=== PATIENT | female | born 1980 | race Caucasian/White ===

== ENCOUNTER 2019-10-14 13:53 | Emergency (ER) | payer MEDICAID, SELFPAY ==
[2019-10-14 13:54] VITALS: BP 205/135; PULSE 92; RESP 16; TEMP 36.9; O2SAT 99; BMI 22.3
--- NOTE | 2019-10-14 14:27 | RAD_ITS ---
STUDY: X-RAY - RIGHT SHOULDER REASON FOR EXAM: Female, 38 years old. Right shoulder/collar bone pain after injury TECHNIQUE: 2 view(s) of the shoulder. COMPARISON: None. FINDINGS: Normal glenohumeral articulation. Normal acromioclavicular joint. Normal acromion. Normal humeral head and visualized proximal humerus. The soft tissue structures are unremarkable. Normal visualized pulmonary apex. RAD/Shoulder min 2 Views IMPRESSION: Normal x-ray examination of the shoulder. Electronically Signed: Ryan Herbert, at 15:04 EDT , Service support ,
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
--- NOTE | 2019-10-14 14:30 | RAD_ITS ---
STUDY: X-RAY CHEST REASON FOR EXAM: Female, 38 years old. Chest pain. TECHNIQUE: Single AP portable view of the chest. COMPARISON: None. FINDINGS: The lungs are clear and expanded. There is no demonstrated pleural abnormality. Normal size heart. Normal mediastinum and maxx. Normal visualized pulmonary arteries. Normal visualized aortic arch and descending thoracic aorta. Normal visualized thoracic spine. Normal visualized ribs, clavicles, and shoulders. There is no demonstrated abnormality of the visualized soft tissue structures of the upper abdomen. RAD/Chest 1 View (Portable) IMPRESSION: Normal x-ray examination of the chest. Electronically Signed: Ryan Herbert, at 15:04 EDT , Service support ,
[2019-10-14] MEDS: Ibuprofen 600 MG Tablet PO (14:46)
[2019-10-14 14:48] VITALS: BP 210/118
--- NOTE | 2019-10-14 16:04 | ED.DEP ---
ED Disposition - Plan for ED Patient: Disposition: Home or Assisted Living Instructions: ED CHEST CONTUSION Referrals: Eddy Bauer DO [Primary Care Provider] - 1 Week if not improving Additional Instructions: Ice to right chest wall. Tylenol and Motrin for pain and swelling. Follow-up if not improving this should progressively get better.
[2019-10-14 16:21] VITALS: BP 190/89; RESP 18; O2SAT 99
== END 2019-10-14 16:22 | disposition home or self-care (01) ==
PROVIDERS: Emergency Provider Emergency Medicine; PCP Family Medicine
DX: S20.211A Contusion of right front wall of thorax, initial encounter (principal); I10 Essential (primary) hypertension; Z79.899 Other long term (current) drug therapy; W50.0XXA Accidental hit or strike by another person, initial encounter; Y93.89 Activity, other specified; Y92.89 Other specified places as the place of occurrence of the external cause; Y99.8 Other external cause status
CPT/HCPCS: 71045; 73030; 99283

== ENCOUNTER 2020-08-30 05:57 | Emergency (ER) | payer MEDICAID, SELFPAY ==
[2020-08-30 05:58] VITALS: BP 179/96; PULSE 79; RESP 18; TEMP 36.2; O2SAT 99; BMI 28.8
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
== END 2020-08-30 07:59 | disposition left against medical advice (07) ==
PROVIDERS: Emergency Provider Emergency Medicine; PCP Family Medicine
DX: F41.9 Anxiety disorder, unspecified (principal); F32.9 Major depressive disorder, single episode, unspecified; I10 Essential (primary) hypertension; Z79.899 Other long term (current) drug therapy; Z87.891 Personal history of nicotine dependence
CPT/HCPCS: 99282

== ENCOUNTER 2021-08-15 21:19 | Emergency (ER) | payer MEDICAID, SELFPAY ==
[2021-08-15 21:20] VITALS: BP 187/101; PULSE 75; RESP 17; TEMP 36.6; O2SAT 97; BMI 34.9
--- NOTE | 2021-08-15 22:19 | EDS_ITS ---
HPI <Dr. Flavia Springer MD - Last Filed: 08/15/21 22:19> History of Present Illness Chief Complaint: Rash <MIRIAN LAZO - Last Filed: 08/15/21 22:37> History of Present Illness Informant: patient Onset/Context/Timing Onset: Weeks (4) Timing: Continuous Narrative Narrative: Patient presents secondary to erythemic rash that began 1 month ago. Patient states rash started in her groin area, accompanied by yellow/green discharge. Patient states that rash has since ascended to her upper body. Patient denies drainage from rash or pruritus. [facility] <Dr. Flavia Springer MD - Last Filed: 08/15/21 22:19> [facility] Medical History Anxiety Depression Hypertension Home Medications amlodipine 5 mg PO DAILY 10/14/19 [History Last Taken Unknown] losartan 100 mg PO DAILY 10/14/19 [History Last Taken Unknown] metoprolol succinate 100 mg PO DAILY 10/14/19 [History Last Taken Unknown] sertraline 200 mg PO DAILY 10/14/19 [History Last Taken Unknown] Allergy/AdvReac Type Severity Reaction Status Date / Time No Known Allergies Allergy Verified 08/15/21 21:24 Social History (System 12/21/18 @ 15:33 by Kati Cavazos) Smoking Status: Former smoker EXAM <Dr. Flaiva Springer MD - Last Filed: 08/15/21 22:19> Physical Exam Const Vital Signs: 08/15/21 21:20 Temperature 97.9 F Temperature Source Temporal Pulse Rate 75 Respiratory Rate 17 Blood Pressure 187/101 H Blood Pressure Mean 129 Pulse Ox 97 Oxygen Delivery Method Room Air <MIRIAN LAZO - Last Filed: 08/15/21 22:37> Physical Exam Const Vital Signs: 08/15/21 21:20 Temperature 97.9 F Temperature Source Temporal Pulse Rate 75 Respiratory Rate 17 Blood Pressure 187/101 H Blood Pressure Mean 129 Pulse Ox 97 Oxygen Delivery Method Room Air Discharge Plan Triage Chief Complaint: Rash ED Provider: Flavia Springer Dx/Rx/DC Orders Prescriptions: No Action metoprolol succinate 50 MG tablet extended release 24 hr 100 mg PO DAILY RF: 0 sertraline 100 MG tablet 200 mg PO DAILY RF: 0 amlodipine 5 MG tablet 5 mg PO DAILY RF: 0 losartan 100 MG tablet 100 mg PO DAILY RF: 0 Primary Care Provider: Eddy Bauer
[2021-08-15 22:27] LABS: Mucous, Urine 0 SEEN /hpf (<or=2+)
[2021-08-15 22:28] LABS: Color, Urine Yellow (Yellow); Glucose, Dipstick 50 mg/dl (Normal); Ketone-Dipstick Negative (Negative); Leukocyte Esterase-Dipstick 500 /ul (Negative); Nitrite-Dipstick Negative (Negative); Occult Blood-Urine 25 /ul (Negative); Protein-Dipstick 15 mg/dl (Negative); Specific Gravity, Urine 1.015 (1.002-1.030); Urine Bilirubin Dipstick Negative (Negative); Urine Clarity Sl. Cloudy (Clear); Urine Urobilinogen Normal (Normal); Urine pH 6.5 (5.0 - 8.0)
[2021-08-15 22:38] LABS: White Blood Cells 50-100 SEEN /hpf (0-5)
[2021-08-15 22:40] LABS: Bacteria 1+ /hpf (None Seen); Internal QC Validated? YES +Cl - CLEAR BKGD; Pregnancy, Urine Negative Negative; Red Blood Cells-Urine 0-5 SEEN /hpf (0-5); Squamous Epithelial Cells - UA 0-5 SEEN /hpf (5-10)
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
[2021-08-15] MEDS: Smz/Tmp Ds Tablet 1 TABLET PO (23:15)
[2021-08-16 01:20] LABS: Chlamydia Trachomatis by PCR Negative (Negative); Neisserai gonorrhoeae by PCR Negative (Negative); Probe Check PASS; Sample Adequacy Control PASS; Specimen Processing Control PASS
[2021-08-16 02:00] LABS: Syphilis Antibodies Non-reactive
[2021-08-17 04:07] LABS: HEPATITIS B SURFACE AG Negative (Negative); Hepatitis A IgM Antibody Negative (Negative); Hepatitis B Core AB IgM Negative (Negative)
[2021-08-17 11:35] LABS: Hep C Antibodies 0.1 s/co ratio (0.0-0.9)
== END 2021-08-15 23:16 | disposition home or self-care (01) ==
PROVIDERS: Emergency Provider Emergency Medicine; PCP Family Medicine; Visit Provider Emergency Medicine
DX: N39.0 Urinary tract infection, site not specified (principal); Z20.5 Contact with and (suspected) exposure to viral hepatitis; Z87.891 Personal history of nicotine dependence; R21 Rash and other nonspecific skin eruption; N89.8 Other specified noninflammatory disorders of vagina; I10 Essential (primary) hypertension; F41.9 Anxiety disorder, unspecified; F32.A Depression, unspecified; Z79.899 Other long term (current) drug therapy
CPT/HCPCS: 80074; 81001; 81025; 86780; 87491; 87591; 99283

== ENCOUNTER 2024-06-14 03:14 | Emergency (ER) | payer MEDICAID, SELFPAY ==
[2024-06-14] VITALS (8 sets, daily range): BP systolic 166–201; BP diastolic 89–135; PULSE 92–110; RESP 13–20; TEMP 36.6–37.1; O2SAT 95–97; BMI 33.3
--- NOTE | 2024-06-14 03:37 | RAD_ITS ---
PROCEDURE: CHEST PA AND LATERAL REASON FOR EXAM: Cough. TECHNIQUE: Frontal and lateral views of the chest. COMPARISON: 10/14/2019. FINDINGS: Cardiac size and pulmonary vasculature are within normal limits. No consolidation, pleural effusion, or pneumothorax is present. RAD/Chest PA and Lateral IMPRESSION: No acute cardiopulmonary process. [facility]
--- NOTE | 2024-06-14 03:37 | EKG12_ITS ---
Test Reason : DYSRHYTHMIA Blood Pressure : */* mmHG Vent. Rate : 117 BPM Atrial Rate : 117 BPM P-R Int : 148 ms QRS Dur : 94 ms QT Int : 352 ms P-R-T Axes : 36 12 -38 degrees QTcB Int : 491 ms Sinus tachycardia Voltage criteria for left ventricular hypertrophy ( R in aVL , Sokolow-[place] , [place] product ) Septal infarct , age undetermined ST & T wave abnormality, consider inferior ischemia Abnormal ECG Confirmed by Sidney Eric ([id number]), editor managing director FRANNY LOZANO ([id number]) on 06/14/2024 11:12:51 AM Referred By: Confirmed By: Sidney Eric
--- NOTE | 2024-06-14 03:53 | EDS_ITS ---
HPI History of Present Illness Chief Complaint: Shortness of Breath Narrative Narrative: Chief complaint and HPI: Cough and flulike symptoms. 43-year-old female with past medical history of HTN and DM2 presents for evaluation of cough and flulike symptoms. Patient states on Friday she developed congestion, fever, cough, diarrhea, nausea. She states her symptoms have somewhat improved. However she states her cough has continued and she developed chest tightness this evening. She denies true chest pain. Has been taking OTC medications. Decreased p.o. intake. No history of asthma or COPD. No history of tobacco abuse. Review of systems: See HPI Medications: As listed on the chart Allergies: As listed on the chart PFSH: Per chart Vital signs: As listed on the chart. Reviewed. Physical exam: Gen: A&O x3, NAD Head: Normocephalic, atraumatic Eyes: No sclera icterus, conjunctiva clear, PERRL, EOMI ENT: TMs clear BL, mildly dry mucous membranes Neck: Trachea midline, No JVD, Full ROM, No meningismus CV: RRR, no murmurs, no peripheral edema Resp: Lungs CTA BL with intermittent expiratory wheeze GI: Abd soft, non-distended, non-tender, no r/r/g Musc: Full ROM, no deformity Skin: Warm, dry, no rash Neuro: Alert, oriented, grossly intact, sensation intact Psych: Cooperative, appropriate mood and affect [facility] Medical History Anxiety Depression Hypertension Home Medications ?Medication ?Instructions ?Recorded ?Last Taken ?Type losartan 100 mg tablet 100 mg PO DAILY 10/14/19 Unk nown History sertraline 100 mg tablet 200 mg PO DAILY 10/14/19 Unk nown History albuterol sulfate 90 mcg/actuation 2 puff inhalation Q 4H PRN PRN 06/14/24 Unknown Rx aerosol inhaler (Ventolin HFA) Wheezing ##1 amlodipine 10 mg tablet 10 mg PO DAILY 06/14/24 Unkn own History clonidine HCl 0.2 mg tablet 0.2 mg PO TID 06/14/24 Unk nown History metformin 500 mg tablet 500 mg PO BID 06/14/24 Unkno wn History metoprolol succinate 100 mg 100 mg PO DAILY 06/14/24 U nknown History tablet,extended release 24 hr ondansetron 4 mg disintegrating 4 mg PO Q8H PRN PRN Na usea #10 tabs 06/14/24 Unknown Rx tablet Allergy/AdvReac Type Severity Reaction Status Date / Time No Known Allergies Allergy Verified 06/14/24 03:19 Social History Smoking Status: Former smoker EXAM Physical Exam Const Vital Signs: 06/14/24 03:15 06/14/24 03:15 06/14/24 03:18 Temperature 98.8 F 98.8 F Temperature Source Oral Oral Pulse Rate 110 H 108 H Respiratory Rate 13 20 H Respiratory Effort Labored Respiratory Pattern Blood Pressure 201/135 H Blood Pressure Mean 157 Pulse Ox 96 95 Oxygen Delivery Method 06/14/24 03:23 06/14/24 03:23 06/14/24 04:10 Temperature 98.8 F Temperature Source Oral Pulse Rate 106 H 106 H 105 H Respiratory Rate 16 16 20 H Respiratory Effort Respiratory Pattern Normal Blood Pressure 201/135 H 201/135 H Blood Pressure Mean 157 157 Pulse Ox 97 97 Oxygen Delivery Method Room Air Room Air 06/14/24 04:23 06/14/24 04:52 06/14/24 04:59 Temperature 98.5 F Temperature Source Oral Pulse Rate 103 H 103 H 92 Respiratory Rate 16 20 H 16 Respiratory Effort Respiratory Pattern Blood Pressure 187/91 H 187/91 H 166/93 H Blood Pressure Mean 123 123 117 Pulse Ox 97 96 96 Oxygen Delivery Method Room Air Room Air Room Air 06/14/24 05:27 Temperature 97.8 F Temperature Source Pulse Rate 98 Respiratory Rate 16 Respiratory Effort Respiratory Pattern Blood Pressure 167/89 H Blood Pressure Mean 115 Pulse Ox 96 Oxygen Delivery Method MDM MDM MDM Narrative Medical decision making narrative: 43-year-old female with past medical history of HTN and DM2 presents for evaluation of cough and flulike symptoms. Differential diagnosis includes but is not limited to influenza, COVID, RSV, other viral illness, pneumonia, electrolyte abnormality, suspect less likely ACS. DuoNeb and NS bolus ordered for symptoms. On presentation patient is hypertensive with SBP in the 200s. She states she did not take any of her hypertensive medications secondary to not feeling well. I suspect this is the reason for her hypertension. Hydralazine ordered. Laboratory workup ordered including chest x-ray and COVID, flu, RSV testing. EKG and chest x-ray reviewed reviewed. CBC without leukocytosis. Patient has hemoconcentration of 16.5. This is consistent with dehydration and patient's reported history of decreased p.o. intake. She is receiving fluids. BMP with dehydration. Patient has mild hyponatremia at 133 as well as creatinine of 1.16. I do not know of patient's renal insufficiency is new or old as I do not have previous labs to compare to. Patient is hyperglycemic, she is a diabetic. Troponin unremarkable. Patient is positive for influenza A. This is likely the cause of her symptoms. On reevaluation, patient's blood pressure has improved to 166/93. She is no longer tachycardic. She states her symptoms have improved. She was able to tolerate p.o. intake. Patient was educated to drink plenty of fluids over the next several days given her mild dehydration. She was educated follow-up with her PCP. Return precautions were explained. She was given prescription for albuterol as needed for wheezing as well as Zofran as needed for nausea. She confirmed understand the plan. Patient outside Tamiflu window. She tolerated p.o. intake prior to discharge. EKG: Interpreted by me/EM physician: EKG shows sinus tachycardia with LVH. Heart rate 117. Patient has some T wave inversions in 3 and aVF. I do not have a previous EKG to compare to. Diagnostic: Interpreted by me/EM physician: Chest x-ray without pneumonia, effusion, cardiomegaly, pneumothorax Impression: 1. Influenza A 2. Mild dehydration Lab Data Labs: Laboratory Results - last 24 hr 06/14/24 03:50 WBC 8.5 RBC 5.81 H Hgb 16.5 H Hct 48.2 H MCV 83.0 MCH 28.4 MCHC 34.2 RDW Std Deviation 38.2 RDW Coeff of Carlito 12.7 Plt Count [employer] MPV 10.5 Immature Gran % (Auto) 0.500 Neut % (Auto) 74.3 H Lymph % (Auto) 18.1 L Cowley % (Auto) 6.0 Eos % (Auto) 0.6 Baso % (Auto) 0.5 Absolute Neuts (auto) 6.3 Absolute Lymphs (auto) 1.54 Nucleated RBC % 0 Sodium 133 L Potassium 3.5 Chloride 98 Carbon Dioxide 25.0 Anion Gap 10 BUN 11 Creatinine 1.16 H Estim Creat Clear Calc 67.19 Est GFR (MDRD) Af Amer 65 Est GFR (MDRD) Non-Af 54 L BUN/Creatinine Ratio 9.5 L Glucose 341 H Calcium 8.7 Troponin I High Sens 16 Radiography Diagnostic Testing: Clinical Impression(s) from Imaging Studies Chest X-Ray 06/14/24 03:37 IMPRESSION: No acute cardiopulmonary process. Reading Location: [facility] Discharge Plan Triage Chief Complaint: Shortness of Breath ED Provider: Hugo Painter Dx/Rx/DC Orders Clinical Impression: Influenza A Instructions: ED Influenza (Adult) Prescriptions: New albuterol sulfate [Ventolin HFA] 90 mcg/actuation HFA aerosol inhaler 2 puff inhalation Q4H PRN PRN (Reason: Wheezing) Qty: 1 0RF ondansetron 4 mg tablet,disintegrating 4 mg PO Q8H PRN PRN (Reason: Nausea) Qty: 10 0RF No Action sertraline 100 MG tablet 200 mg PO DAILY losartan 100 MG tablet 100 mg PO DAILY metformin 500 mg tablet 500 mg PO BID metoprolol succinate 100 mg tablet extended release 24 hr 100 mg PO DAILY clonidine HCl 0.2 mg tablet 0.2 mg PO TID amlodipine 10 mg tablet 10 mg PO DAILY Primary Care Provider: Eddy Bauer Referrals: Eddy Bauer DO [Primary Care Provider] - 3-5 Days Activity Restrictions/Additional Instructions: Return back to the ED if symptoms change or worsen. Follow-up with primary care physician. Take your blood pressure medication today. Okay for antinausea medicine in 8 hours. Make sure you are drinking plenty of fluids over the next several days. Print Language: Yakut Disposition Disposition: Home, Self Care
[2024-06-14 04:05] LABS: Absolute Lymphocyte Count 1.54 X10^3/uL (0.83-4.51); Absolute Neutrophil Count 6.3 X10^3/uL (2.0-7.7); Basophil# 0.04 X10^3/uL; Basophil% 0.5 % (0-1); Eosinophil# 0.05 X10^3/uL; Eosinophils% 0.6 % (0-5); Hematocrit 48.2 % (37-47); Hemoglobin 16.5 g/dL (12.0-15.0); Lymphocyte # 1.54 X10^3/ul (0.83-4.51); Lymphocyte % 18.1 % (19-41); Mean Corp Hgb Conc 34.2 g/dL (32-36); Mean Corpuscular Hgb 28.4 pg (27.0-32.0); Mean Platelet Vol. 10.5 fl (6.2-12.0); Monocyte# 0.51 X10^3/uL; NRBC Flagged by Analyzer 0 % (0-5); Neutrophil # 6.31 X10^3/uL (2.7-7.7); Neutrophil % 74.3 % (47-70); POSITIVE COUNT YES; RBC Distribution Width CV 12.7 % (11.6-14.6); RBC Distribution Width SD 38.2 fl (35.1-43.9); Red Blood Count 5.81 M/mm3 (4.2-5.4); White Blood Count 8.5 K/mm3 (4.4-11.0)
[2024-06-14] MEDS: 0.9% Normal Saline (1000mL) 1,000 ML 999 ML IV (04:07)
[2024-06-14] MEDS: hydrALAZINE 20 MG/ML Vial IV (04:08)
[2024-06-14] MEDS: Ondansetron 4 MG/2 ML Vial IV (04:10)
[2024-06-14] MEDS: Ipratropium/Albuterol Sulfate 3 ML AMPUL.NEB INHALATION (04:10)
[2024-06-14 04:26] LABS: Anion Gap 10 (5-15); BUN 11 mg/dL (7-18); BUN/Creat Ratio 9.5 RATIO (10-20); Calcium,Total 8.7 mg/dL (8.5-10.1); Chloride 98 mmol/L (98-107); Creatinine, Serum 1.16 mg/dL (0.55-1.02); EST Glomerular Filtration Rate 54 mL/min (>60); Est Glom Filt Rate - Afr Amer 65 mL/min (>60); Estimated Creatinine Clearance 67.19 ml/min; Glucose 341 mg/dL (74-106); Potassium 3.5 mmol/L (3.5-5.1); Sodium Level 133 mmol/L (136-145); Troponin-I HS 16 pg/mL (3.0-54.0)
[2024-06-14 04:43] LABS: Differential Indicated SCAN CRITERIA MET
== END 2024-06-14 05:55 | disposition home or self-care (01) ==
PROVIDERS: Emergency Provider Surgery; PCP Family Medicine; Visit Provider Surgery
DX: J10.1 Influenza due to other identified influenza virus with other respiratory manifestations (principal); E11.65 Type 2 diabetes mellitus with hyperglycemia; I10 Essential (primary) hypertension; E87.1 Hypo-osmolality and hyponatremia; Z87.891 Personal history of nicotine dependence; E86.0 Dehydration; Z79.84 Long term (current) use of oral hypoglycemic drugs; Z79.899 Other long term (current) drug therapy
CPT/HCPCS: 71046; 80048; 84484; 85025; 87631; 93005; 94640; 99283; A4216; J2405